=== PATIENT | male | born 1970 | race Caucasian/White ===

== ENCOUNTER 2017-06-10 01:59 | Emergency (ER) | payer MEDICAID ==
[2017-06-10] MEDS ORDERED: IPRATROPIUM/ALBUTEROL 3 ML NEB INH STA (02:12)
[2017-06-10] MEDS ORDERED: predniSONE 20 MG TABLET PO STA (02:12)
[2017-06-10] MEDS ORDERED: predniSONE 20 MG TABLET ONE (02:15)
[2017-06-10] MEDS ORDERED: IPRATROPIUM/ALBUTEROL 3 ML NEB INH ONE ×2 (02:18→02:24)
--- NOTE | 2017-06-10 03:23 | XRAY Preliminary Report ---
Exam: XR Chest 2 View PA/LAT IMPRESSION: Stable appearance of the chest without acute cardiopulmonary abnormality. [facility] SITE ID: [id number]
--- NOTE | 2017-06-10 03:26 | XRAY Report ---
EXAM: CHEST RADIOGRAPHY EXAM DATE: 06/10/2017 02:56 AM. CLINICAL HISTORY: Shortness of breath, productive cough. COMPARISON: 01/02/2015. TECHNIQUE: 2 views. FINDINGS: Lungs/Pleura: No focal opacities evident. No pleural effusion. No pneumothorax. Normal volumes. Diaph ragmatic flattening suggesting obstructive pulmonary disease. Mediastinum: Heart and mediastinal contours are unremarkable. Other: There is moderate multilevel degenerative change within the spine. IMPRESSION: Stable appearance of the chest without acute cardiopulmonary abnormality. [facility] Referring Provider Line: [phone] SITE ID: [id number]
--- NOTE | 2017-06-10 03:54 | ED Physician Documentation ---
PD HPI DYSPNEA - Stated complaint Stated Complaint: DIFF BREATHING - Chief complaint Chief Complaint: Resp - History obtained from History obtained from: Patient - History of Present Illness Timing - onset: How many days ago (2) Timing - onset during: Rest Timing - details: Gradual onset, Still present Inciting event(s): Out of meds Improved by: O2 Associated symptoms: Cough, Wheezing. No: Fever, Chest pain / discomfort, Palpitations Similar symptoms before: Work up / diagnostics, Treatment Recently seen: Not recently seen - Additional information Additional information: Patient is a 46 year old male with a history of asthma who is still an active smoker who is presenting to the emergency department for shortness of breath. patient states that it has been going on for the last few days and has become progressively worse. Patient states that he does not have his inhaler at home. Review of Systems Constitutional: denies: Fever, Chills Eyes: denies: Decreased vision, Photophobia Ears: denies: Ear pain, Drainage/discharge Nose: denies: Rhinorrhea / runny nose, Congestion Throat: denies: Dental pain / toothache Cardiac: denies: Chest pain / pressure, Palpitations, Calf pain Respiratory: reports: Cough, Wheezing GI: denies: Abdominal Pain, Nausea, Vomiting Skin: denies: Rash, Lesions Musculoskeletal: denies: Neck pain, Back pain, Extremity pain Neurologic: denies: Generalized weakness, Focal weakness Psychiatric: denies: Depressed Immunocompromised: denies: Immunocompromised PD PAST MEDICAL HISTORY - Past Medical History Past Medical History: Yes Cardiovascular: Hypertension Respiratory: Asthma Neuro: Headache/migraine Endocrine/Autoimmune: None GI: GERD : None HEENT: None Musculoskeletal: Chronic back pain Derm: None - Past Surgical History Past Surgical History: Yes - Present Medications Home Medications: Ambulatory Orders Medication Instructions Recorded Confirmed Oxycodone HCl/Acetaminophen 1 - 2 each PO Q6H PRN #15 tablet 04/04/15 [Percocet 5-325 mg Tablet] Sulfamethoxazole/Trimethoprim 1 each PO BID #14 tablet 04/04/15 [Bactrim Ds Tablet] Albuterol Sulfate [Proventil Hfa 1 - 2 puffs INH Q4H PRN #1 inhaler 06/10/17 Inhaler] Prednisone 40 mg PO DAILY 5 Days 06/10/17 Ranitidine HCl 150 mg PO DAILY #30 tablet 06/10/17 - Allergies Allergies/Adverse Reactions: Allergies Allergy/AdvReac Type Severity Reaction Status Date / Time Penicillins Allergy Unknown unknown Verified 01/02/15 18:18 - Social History Does the pt smoke?: Yes Smoking Status: Current every day smoker Does the pt drink ETOH?: Yes Does the pt have substance abuse?: Yes - Immunizations Immunizations are current?: No Immunizations: TDAP current <10years - POLST Patient has POLST: No PD ED PE NORMAL - Vitals Vital signs reviewed: Yes - General General: Alert and oriented X 3, No acute distress - HEENT HEENT: Atraumatic, PERRL - Neck Neck: Supple, no meningeal sign - Cardiac Cardiac: RRR, No murmur - Abdomen Abdomen: Soft - Derm Derm: Normal color, Warm and dry, No rash - Neuro Neuro: Alert and oriented X 3, No motor deficit, No sensory deficit, Normal speech - Psych Psych: Normal mood PD ED PE EXPANDED - Respiratory Respiratory: Wheezing, Right upper lobe, Left upper lobe. No: Distress, Labored , Accessory mm use Results - Vitals Vitals: Vital Signs - 24 hr 06/10/17 06/10/17 02:11 02:20 Temperature 36.6 C Heart Rate 107 H 100 Respiratory 20 18 Rate Blood Pressure 139/94 H O2 Saturation 96 Oxygen O2 Source Room air - Rads (name of study) chest x-ray Radiology: Final report received (no acute disease process) PD MEDICAL DECISION MAKING - ED course Complexity details: reviewed old records, reviewed results, re-evaluated patient , d/w patient, d/w family ED course: Patient was seen and examined at bedside. patient was treated with three duoneb treatments and prednisone. chest x-ray was performed and was within normal limits. Patient responded well to the therapy. Patient required no further work up and was stable for discharge with outpatient follow up. Departure - Departure Disposition: 01 Home, Self Care Clinical Impression: Asthma Condition: Good Instructions: Asthma Dc Follow-Up: Tania Jordan ARNP [Primary Care Provider] - Within 1 week Prescriptions: Prednisone 40 mg PO DAILY 5 Days Albuterol Sulfate [Proventil Hfa Inhaler] 1 - 2 puffs INH Q4H PRN #1 inhaler PRN Reason: Shortness Of Air/Wheezing Ranitidine HCl 150 mg PO DAILY #30 tablet Comments: Your diagnostics today were within normal limits. the most important thing that you can do is to quit smoking. You should follow up with your pmd if your symptoms persist. You may return to the emergency department at any time for new, worsening or uncontrollable symptoms.
[2017-06-10 04:05] VITALS: BP 134/83
== END 2017-06-10 04:14 | disposition home or self-care (01) ==
LOC: ED 01:59
DX: J45.909 Unspecified asthma, uncomplicated (principal); I10 Essential (primary) hypertension; F17.200 Nicotine dependence, unspecified, uncomplicated
CPT/HCPCS: 71020; 94640; 99283; J7512; J7620

== ENCOUNTER 2018-01-26 14:55 | Outpatient (CLI) | payer MEDICAID ==
[2018-01-26 18:45] LABS: BASOPHILS # (AUTO) 0.1 10^3/uL (0.0-0.1); EOSINOPHILS # (AUTO) 0.3 10^3/uL (0.0-0.7); EOSINOPHILS % (AUTO) 3.7 %; HGB - HEMOGLOBIN 15.3 g/dL (14.0-18.0); LYMPHOCYTES # (AUTO) 2.6 10^3/uL (1.5-3.5); LYMPHOCYTES % (AUTO) 34.3 %; MEAN CORPUSCULAR HEMOGLOBIN 28.1 pg (27.0-31.0); MEAN CORPUSCULAR HGB CONC 32.2 g/dL (32.0-36.0); MEAN CORPUSCULAR VOLUME 87.1 fL (80.0-94.0); MEAN PLATELET VOLUME 7.5 fL (7.4-11.4); MONOCYTES # (AUTO) 0.9 10^3/uL (0.0-1.0); MONOCYTES % (AUTO) 11.1 %; NEUTROPHILS # (AUTO) 3.8 10^3/uL (1.5-6.6); NEUTROPHILS % (AUTO) 49.9 %; PLT - PLATELET COUNT 322 10^3/uL (130-450); RED BLOOD COUNT 5.46 10^6/uL (4.70-6.10); RED CELL DISTRIBUTION WIDTH 13.5 % (12.0-15.0); WHITE BLOOD COUNT 7.7 x10^3/uL (4.8-10.8)
[2018-01-26 19:08] LABS: CALCIUM 9.3 mg/dL (8.5-10.3); CREATININE 0.8 mg/dL (0.6-1.2)
== END 2018-01-26 14:56 | disposition home or self-care (01) ==
LOC: LAB.N 14:55
PROVIDERS: ATTEND Physician Assistant Medical
DX: R80.9 Proteinuria, unspecified (principal); R31.9 Hematuria, unspecified
CPT/HCPCS: 36415; 80048; 85025

== ENCOUNTER 2018-01-31 19:12 | Emergency (ER) | payer MEDICAID ==
[2018-01-31 20:01] LABS: BILIRUBIN,URINE NEGATIVE (NEGATIVE); GLUCOSE, URINE (UA) NEGATIVE (NEGATIVE); KETONES,URINE (UA) NEGATIVE (NEGATIVE); LEUKOCYTE ESTERASE, URINE MODERATE (NEGATIVE); NITRITE,URINE POSITIVE (NEGATIVE); OCCULT BLOOD,URINE LARGE (NEGATIVE); PROTEIN,URINE 100 mg/dL (NEGATIVE); UROBILINOGEN,URINE 1 (NORMAL) E.U./dL (NORMAL)
[2018-01-31 20:03] LABS: CLARITY,URINE CLOUDY (CLEAR)
[2018-01-31 20:09] LABS: BACTERIA,URINE Many /HPF (None Seen); SQUAMOUS EPITHELIAL CELL,UR NONE SEEN (<= Few); WBC CLUMPS,URINE PRESENT
[2018-01-31] MEDS ORDERED: LIDOCAINE 1% 2 ML VIAL SUBQ ONE (20:55)
[2018-01-31] MEDS ORDERED: ONDANSETRON ODT 4 MG Prepack 2 TL STA (20:55)
[2018-01-31] MEDS ORDERED: HYDROcod/ACET 5/325 Prepack 4 PO STA (20:55)
[2018-01-31] MEDS ORDERED: cefTRIAXone 1 GM VIAL IM STA (20:55)
[2018-01-31] MEDS ORDERED: HYDROmorphone 1 MG/ML SYRINGE IM STA (20:55)
[2018-01-31] MEDS ORDERED: ONDANSETRON ODT 4 MG TABLET TL STA (20:55)
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
--- NOTE | 2018-01-31 22:02 | CT Report ---
EXAM: CT ABDOMEN AND PELVIS EXAM DATE: 01/31/2018 09:34 PM. CLINICAL HISTORY: Left flank pain. COMPARISONS: None. TECHNIQUE: Routine helical CT imaging was performed through the abdomen and pelvis. IV contrast: Amt/ type. Enteric contrast: No. Reconstructions: Coronal and sagittal. In accordance with CT protocol optimization, one or more of the following dose reduction techniques w ere utilized for this exam: automated exposure control, adjustment of mA and/or KV based on patient s ize, or use of iterative reconstructive technique. FINDINGS: Lung Bases: Unremarkable. Liver: Normal. No masses. Gallbladder/Bile Ducts: Large gallstones. Dilated common bile duct 13 mm in diameter. Spleen: Normal. Pancreas: Normal. Adrenal Glands: Normal. Kidneys: No kidney or ureteral stones on either side. Both sides demonstrate mild fullness to the ure ters with periureteral fat stranding. Peritoneal Cavity/Bowel: Mild diverticulosis. No free fluid, free air or adenopathy. No masses or acu te inflammatory process. The appendix is well visualized and normal. Pelvic Organs: The prostate and bladder are unremarkable. Vasculature: No aneurysms or other significant abnormality. Bones: No significant abnormality. Other: None. IMPRESSION: 1. Mild bilateral ureterectasis with surrounding periureteral fat stranding, left worse than right, p ossibly ureteritis. No kidney or ureteral stones. 2. Stable cholelithiasis with dilated common bile duct. 3. Mild diverticulosis without diverticulitis. [facility] Referring Provider Line: [phone] SITE ID: [id number]
[2018-01-31 22:14] VITALS: BP 150/100
== END 2018-01-31 22:14 | disposition home or self-care (01) ==
LOC: ED 19:12
DX: N12 Tubulo-interstitial nephritis, not specified as acute or chronic (principal); I10 Essential (primary) hypertension; G89.29 Other chronic pain; F17.200 Nicotine dependence, unspecified, uncomplicated
CPT/HCPCS: 74176; 81001; 87086; 87181; 96372; 99283; J1170; Q0162; 81003

== ENCOUNTER 2019-04-09 17:22 | Outpatient (CLI) | payer MEDICAID | END 2019-04-09 17:23 | disposition critical access hospital (66) | LOC: EMS 17:22 | PROVIDERS: ATTEND Surgery | DX: S09.90XA Unspecified injury of head, initial encounter (principal); Y04.2XXA Assault by strike against or bumped into by another person, initial encounter | CPT/HCPCS: A0425; A0429; A0999 ==

== ENCOUNTER 2019-04-09 17:46 | Emergency (ER) | payer MEDICAID ==
[2019-04-09] MEDS ORDERED: HYDROcod/ACETAM 5/325 MG TABLET PO STA (17:54)
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
[2019-04-09] MEDS ORDERED: HYDROcod/ACET 5/325 Prepack 4 PO STA (19:19)
[2019-04-09 19:30] VITALS: BP 153/109
== END 2019-04-09 19:33 | disposition home or self-care (01) ==
LOC: EDUNIT# → ED 17:46
DX: S09.90XA Unspecified injury of head, initial encounter (principal); S19.9XXA Unspecified injury of neck, initial encounter; Y04.2XXA Assault by strike against or bumped into by another person, initial encounter; Y92.009 Unspecified place in unspecified non-institutional (private) residence as the place of occurrence of the external cause; I10 Essential (primary) hypertension; M47.812 Spondylosis without myelopathy or radiculopathy, cervical region; M51.44 Schmorl's nodes, thoracic region; Q05.5 Cervical spina bifida without hydrocephalus; F17.200 Nicotine dependence, unspecified, uncomplicated
CPT/HCPCS: 70450; 72125; 99282; 99283; A9270

== ENCOUNTER 2019-05-13 14:37 | Outpatient (CLI) | payer MEDICAID | END 2019-05-13 14:38 | disposition E | LOC: EMS 14:37 | PROVIDERS: ATTEND Surgery | DX: V53.6XXA Passenger in pick-up truck or van injured in collision with car, pick-up truck or van in traffic accident, initial encounter; Y92.413 State road as the place of occurrence of the external cause ==